=== PATIENT | female | born 1955 | race Caucasian/White ===

== ENCOUNTER 2023-08-03 19:46 | Emergency (ER) | payer BC ==
[~2023-08-03] VITALS: Ht 165.1 cm; Wt 65.8 kg
[2023-08-03 20:00] VITALS: BP 170/90; PULSE 80; RESP 17; TEMP 97.7; O2SAT 90
[2023-08-04] MEDS ORDERED: HYDROcodone/APAP 5/325 MG 1 TAB TAB PO ONE (02:00)
[2023-08-04] MEDS ORDERED: KETOROLAC 30 MG/ML VIAL IM ONE (02:00)
[2023-08-04] MEDS ORDERED: NAPR-54 PO (02:20)
[2023-08-04] MEDS ORDERED: ACET-8905 PO (02:20)
[2023-08-04 02:42] LABS: BASOPHILS # (AUTO) 0.1 K/uL (0.00-0.22); BASOPHILS % (AUTO) 0.8 % (0.0-2.0); EOSINOPHILS # (AUTO) 0.2 K/uL (0-0.4); EOSINOPHILS % (AUTO) 2.4 % (0.0-4.0); HEMATOCRIT 31.5 % (36-48); HEMOGLOBIN 10.6 g/dL (12.0-16.0); LYMPHOCYTES # (AUTO) 1.2 K/uL (2.5-16.5); LYMPHOCYTES % (AUTO) 15.9 % (20.5-51.1); MEAN CORPUSCULAR HEMOGLOBIN 29 pg (27-31); MEAN CORPUSCULAR HGB CONC 34 g/dL (33-37); MEAN CORPUSCULAR VOLUME 86.8 fL (80-94); MONOCYTES # (AUTO) 0.4 K/uL (0.8-1.0); NEUTROPHILS # (AUTO) 5.4 K/uL (1.8-7.7); NEUTROPHILS % (AUTO) 74.9 % (42.2-75.2); PLATELET COUNT (AUTO) 341 K/uL (140-450); RED BLOOD CELL COUNT(AUTO) 3.63 MIL/uL (4.20-5.40); RED CELL DISTRIBUTION WIDTH 13.7 % (11.6-13.7); WHITE BLOOD COUNT (AUTO) 7.3 K/uL (4.8-10.8)
[2023-08-04 02:50] LABS: ANION GAP 14.5 (8-16); CALCIUM 8.5 mg/dL (8.5-10.1); CARBON DIOXIDE 21.1 mmol/L (21-32); CREATININE 0.9 mg/dL (0.6-1.3); POTASSIUM 3.6 mmol/L (3.5-5.1)
[2023-08-04 03:35] VITALS: BP 170/90; PULSE 80; RESP 17; TEMP 97.7; O2SAT 90
== END 2023-08-04 03:35 | disposition home or self-care (01) ==
LOC: MED 19:46
DX: M13.822 Other specified arthritis, left elbow (principal); E11.9 Type 2 diabetes mellitus without complications; I10 Essential (primary) hypertension; Z79.4 Long term (current) use of insulin; Z79.899 Other long term (current) drug therapy
CPT/HCPCS: 36415; 73030; 73080; 73090; 73130; 80048; 85025; 96372; 99284; J1885

== ENCOUNTER 2023-10-01 20:15 | Emergency (ER) | payer BC ==
[~2023-10-01] VITALS: Ht 154.9 cm; Wt 65.8 kg
[~2023-10-01 20:15] MED LIST: ACET-8905 PO; NAPR-54 PO
[2023-10-01 20:57] VITALS: BP 163/102; PULSE 94; RESP 18; TEMP 97.1; O2SAT 99
[2023-10-02] MEDS ORDERED: KETOROLAC 60 MG/2 ML VIAL IM ONE (00:20)
[2023-10-02] MEDS ORDERED: CELE100C PO (01:02)
[2023-10-02 01:05] VITALS: BP 150/94; PULSE 95; RESP 18; TEMP 97.2; O2SAT 99
== END 2023-10-02 01:05 | disposition home or self-care (01) ==
LOC: MED 20:15
DX: M13.842 Other specified arthritis, left hand (principal); Z79.899 Other long term (current) drug therapy
CPT/HCPCS: 96372; 99283; J1885